=== PATIENT | female | born 1995 | race Caucasian/White ===

== ENCOUNTER 2018-06-24 13:25 | Outpatient (AMBR) | payer MEDICAID, SELFPAY ==
--- NOTE | 2018-06-24 14:44 | PT.ODS1RPT ---
PT OP Progress/Discharge Note Date of Service: June 24, 2018 Progress Note/DC Note Progress Note/Discharge Note: DC Note Patient Information Visit Reasons: back and hips Medical Diagnosis: M54.5 Treatment Dx #1: Back Pain Service Continue Service or Discharge: Discharge Discharge Date: 06/24/18 Status Subjective: Pt mention that her pain is much better. Pt has been able to sit, stand, and performing her ADLs with less limitation. Pt can lift her son with less back pain. Pt feels comfortable being release from PT with exercises to continue at home. Objective: L/S AROM: all motions are WNL Hip PROM: all motions: all motions are WNL Hip MMTs Bilateral Glute Med: 4-/5 Bilateral Glute Max: 4-/5 Assessment: Pt demonstrate functional mobility and core strength allowing her to resume normal ADLs, chores, lifting, and performing normal functional tasks. Pt will no longer benefit from physical therapy due to meeting all set goals in therapy. Pt was instructed on HEP last session and educated to continue exercises to maintain overall mobility. Pt performed all exercises safely, thank you for your referrals. Plan: D/C home with HEP and follow up with MD ARANDA Office Procedures PT Procedures PT Date of Service: 06/24/18 Therapeutic Exercise 30 minutes: Yes
== END 2018-07-22 23:59 | disposition home or self-care (01) ==
PROVIDERS: PCP Family Medicine; Referring Provider Family Medicine; Visit Provider Nurse Practitioner Family
DX: M54.5 Low back pain (principal); R26.2 Difficulty in walking, not elsewhere classified; M54.16 Radiculopathy, lumbar region
CPT/HCPCS: 97110

== ENCOUNTER 2018-11-05 10:30 | Outpatient (AMBR) | payer MEDICAID, SELFPAY ==
--- NOTE | 2018-10-25 14:07 | PT.ODAYNRPT ---
PT Outpatient Daily Note Date of Service: October 25, 2018 OP Daily Note Visit Reasons: left ankle Outpatient Physical Therapy Treatment Date: 10/25/18 Subjective: pt doing well as she had no complaints upon visit. Objective: see flow sheet. Assessment: added new exercises for balance training in which she found to be muscle fatigue causing imbalance. pt did need to use the rail at times for safety. pt had her son during treatment and was getting in front or in back of her during exercises. pt did feel more fatigue and pain during her SLS as we increased her time from 2 to 15 for each rep. Plan: continue POC per PT. Length of Time (minutes) of Treatment: 30 Minutes Office Procedures PT Procedures PT Date of Service: 10/25/18 Therapeutic Exercise 30 minutes: Yes
--- NOTE | 2018-10-29 15:07 | PT.ODAYNRPT ---
PT Outpatient Daily Note Date of Service: October 29, 2018 OP Daily Note Visit Reasons: left ankle Outpatient Physical Therapy Treatment Date: 10/29/18 Subjective: pt states her ankle was feeling stiff upon visit. pt can't explain why. Objective: see flow sheet. Assessment: advised pt it could be due to poor footwear or extra activities involving being on her feet. added new exercises in which she was able to tolerated with good mobility. pt attempted the bike and she did well. pt had more difficulty with side to side balance while on the wobble board instead of fwd/bwd. ice pack post ther ex. Plan: continue POC per PT. Length of Time (minutes) of Treatment: 30 Minutes Office Procedures PT Procedures PT Date of Service: 10/29/18 Therapeutic Exercise 30 minutes: Yes PT Procedures PT Date of Service: 10/25/18 Therapeutic Exercise 30 minutes: Yes
--- NOTE | 2018-11-03 10:57 | PT.ODAYNRPT ---
PT Outpatient Daily Note Date of Service: November 03, 2018 OP Daily Note Visit Reasons: left ankle Outpatient Physical Therapy Treatment Date: 11/03/18 Subjective: Pt has good and bad days. Today Pt's ankle feels okay Objective: Please see flow chart for list of ther ex performed Assessment: tolerate exercises with minimal pain Plan: Continue with PT Length of Time (minutes) of Treatment: 30 Minutes Office Procedures PT Procedures PT Date of Service: 10/29/18 Therapeutic Exercise 30 minutes: Yes PT Procedures PT Date of Service: 10/25/18 Therapeutic Exercise 30 minutes: Yes PT Procedures PT Date of Service: 11/03/18 Therapeutic Exercise 30 minutes: Yes
--- NOTE | 2018-11-05 10:59 | PT.ODAYNRPT ---
PT Outpatient Daily Note Date of Service: November 05, 2018 OP Daily Note Visit Reasons: left ankle Outpatient Physical Therapy Treatment Date: 11/05/18 Subjective: Pt's ankle sore from previous visit. Pt mention that she still notice tendon gliding. Objective: Please see flow chart for list of ther ex performed Assessment: difficulty with tic tock foam exercises as well as SLS with increase in stance. Pt's ankle DF AROM is improving allowing her to ambulate with good push off Plan: Continue with PT Length of Time (minutes) of Treatment: 30 Minutes Office Procedures PT Procedures PT Date of Service: 10/29/18 Therapeutic Exercise 30 minutes: Yes PT Procedures PT Date of Service: 10/25/18 Therapeutic Exercise 30 minutes: Yes PT Procedures PT Date of Service: 11/03/18 Therapeutic Exercise 30 minutes: Yes PT Procedures PT Date of Service: 11/05/18 Therapeutic Exercise 30 minutes: Yes
== END 2018-11-19 23:59 | disposition home or self-care (01) ==
PROVIDERS: PCP Family Medicine; Referring Provider Family Medicine; Visit Provider Orthopaedic Surgery
DX: S93.402D Sprain of unspecified ligament of left ankle, subsequent encounter (principal); R26.2 Difficulty in walking, not elsewhere classified; M25.572 Pain in left ankle and joints of left foot; R53.1 Weakness; X50.0XXD Overexertion from strenuous movement or load, subsequent encounter
CPT/HCPCS: 97110

== ENCOUNTER 2025-05-22 09:06 | Emergency (ER) | payer MEDICAID, SELFPAY ==
[2025-05-22 09:07] VITALS: BMI 35.5
--- NOTE | 2025-05-22 09:37 | XR_ITS ---
Examination: Foot, right, 3 views Technique: AP, oblique, lateral views foot, 3 views Date and time of exam: May 22, 2025, 0938 hours INDICATIONS: Right foot pain beginning 1 month ago. FINDINGS: No fracture or dislocation. Mild narrowing first metatarsophalangeal joint No plantar or posterior bony calcaneal spur IMPRESSION: No fracture or dislocation No cortical bone destruction No foreign body
[2025-05-22 09:38] VITALS: BP 130/86; PULSE 115; RESP 18; TEMP 36.7; O2SAT 97
--- NOTE | 2025-05-22 09:41 | EDNOTE_ITS ---
<Statement entered by Brianna Aggarwal MD - 05/22/25 17:17> As co-signing physician, I was present and available for consult prn. I concur with the plan and care as documented by the midlevel provider. Lower Extremity Injury RME/HPI General Chief Complaint: Ankle/Foot Injury Stated Complaint: foot pain Time Seen by Provider: 05/22/25 09:22 Source: patient Arrival date/time: 05/22/25 09:06 29-year-old female with no known medical history presents to the emergency room with a chief complaint of right sided foot pain x 1 month Mode of arrival: ambulatory Limitations: no limitations Related Data Previous Rx's ?Medication ?Instructions ?Recorded naproxen 500 mg tablet 500 mg PO BID PRN pain #30 t abs 02/23/23 ibuprofen 800 mg tablet 800 mg PO Q8H #30 tabs 05/22 Allergies Allergy/AdvReac Type Severity Reaction Status Date / Time No Known Allergies Allergy Unknown Uncoded 05/22/25 09:10 Review of Systems Review of Systems Systems Reviewed: All systems reviewed, normal except as documented Constitutional Constitutional: Reports system reviewed and no additional complaints, except as documented, Denies fatigue, Denies fever(s), Denies headache(s) and Denies weakness Eyes Eyes: Reports system reviewed and no additional complaints, except as documented, Denies blurry vision and Denies change in vision ENT Ears, Nose, Mouth, and Throat: Reports system reviewed and no additional complaints, except as documented, Denies otalgia, Denies headache(s), Denies nasal congestion, Denies throat swelling and Denies vertigo Cardiovascular Cardiovascular: Reports system reviewed and no additional complaints, except as documented, Denies chest pain, Denies dyspnea and Denies dyspnea on exertion Respiratory Respiratory: Reports system reviewed and no additional complaints, except as documented, Denies chest congestion, Denies cough, Denies dyspnea, Denies dyspnea on exertion and Denies wheezing Gastrointestinal Gastrointestinal: Reports system reviewed and no additional complaints, except as documented, Denies abdominal pain, Denies cramping, Denies nausea and Denies vomiting Genitourinary Genitourinary: Reports system reviewed and no additional complaints, except as documented Musculoskeletal Musculoskeletal: Reports system reviewed and no additional complaints, except as documented, Reports arthralgias, Denies back pain, Reports joint swelling and Reports limited range of motion Integumentary/Breasts Skin/Breast: Reports system reviewed and no additional complaints, except as documented and Denies wounds Neurologic Neurologic: Reports system reviewed and no additional complaints, except as documented, Denies confusion, Denies headache(s), Denies lack of coordination, Denies vertigo and Denies weakness Psychiatric Psychiatric: Reports system reviewed and no additional complaints, except as documented, Denies anxiety, Denies confusion, Denies depression, Denies paranoia, Denies suicidal ideation and Denies tactile hallucinations Endocrine Endocrine: Reports system reviewed and no additional complaints, except as documented and Denies fatigue Hematologic/Lymphatic Hematologic/Lymphatic: Reports system reviewed and no additional complaints, except as documented and Denies lymphadenopathy Allergic/Immunologic Allergic/Immunologic: Reports system reviewed and no additional complaints, except as documented, Denies throat swelling, Denies urticaria and Denies wheezing Past Medical History Past Medical History NEUROLOGIC: Negative Neurological Disorders CARDIAC: Negative Cardiac Disorders or Congestive Heart Failure RESPIRATORY: Negative Chronic Obstructive Pulmonary Disease (COPD) GASTROINTESTINAL: Positive Gastrointestinal Disorders and Obesity; Negative Hepatitis or Colorectal Cancer GENITOURINARY: Positive Genitourinary Disorders (bladder infections with previous ); Negative Renal Disease or Prostate Cancer REPRODUCTIVE: Positive Previous Pregnancies; Negative Breast Cancer or Testicular Cancer MUSCULOSKELETAL: Negative Musculoskeletal Disorders or Bone Cancer ENDOCRINE: Negative Endocrine Disorders, Diabetes Mellitus Type 1 or Diabetes Mellitus Type 2 HEMATOLOGIC: Positive Blood Disorders and Anemia (this ) OTHER HISTORY: Negative Hospitalization, Autoimmune Disease, Down Syndrome, Developmental Delay, Shingles, Falls, Blood Transfusions, Blood Transfusion Reaction, Anesthesia Reactions, Organ Transplant, Chemotherapy, Radiation Therapy, Hyperbaric Therapy, MRSA, VRSA, Vancomycin-Resistant Enterococci, Human Immunodeficiency Virus (HIV), Chicken Pox, Measles, Mumps, Rubella (T[place] Measles), Pertussis, Clostridium Difficile, Cancer, Breast Cancer, Cervical Cancer, Colorectal Cancer, Lung Cancer, Ovarian Cancer, Prostate Cancer or Testicular Cancer Family History FAMILY HISTORY: Positive Family Cardiac Disorders (grandmother) and Family Surgery (father-gastric bypass); Negative Family Psychiatric Problems, Family Respiratory Disorders, Family Gastrointestinal Problems, Family Cancer or Family Anesthesia Reaction Surgical History SURGICAL: Negative Section or Organ Transplant Social History SMOKING STATUS: Never smoker ED Exam General Limitations: Present no limitations General appearance: Present alert and in no apparent distress Head Head exam: Present atraumatic Eye Eye exam: Present normal appearance, PERRL and EOMI ENT ENT exam: Present normal exam, normal oropharynx and mucous membranes moist Neck Neck exam: Present normal inspection, full ROM and trachea midline Chest Chest inspection: Present normal inspection and symmetric chest wall rise Respiratory Respiratory exam: Present normal lung sounds bilaterally Cardiovascular Cardiovascular exam: Present regular rate, normal rhythm and normal heart sounds Abdominal Exam Abdominal exam: Present soft and normal bowel sounds Extremities Exam Extremities exam: Present normal inspection and full ROM Expanded Lower Extremity Exam Hip/Pelvis exam: Present normal inspection Upper leg exam: Present normal inspection Knee exam: Present normal inspection Lower leg exam: Present normal inspection Ankle exam: Present normal inspection Foot/toe exam: Present full ROM and tenderness; Absent swelling Back Exam Back exam: Present normal inspection and full ROM Neurological Exam Neurological exam: Present alert, oriented X3 and CN II-XII intact Psychiatric Psychiatric exam: Present normal affect and normal mood Skin Skin exam: Present warm, dry, intact and normal color Course Quality Measures none Orders Category Date Time Status XR foot comp RT min 3V Stat Exams 05/22/25 09:37 Completed Vital Signs Vital signs: Vital Signs Temperature 98.1 F 05/22/25 09:38 Pulse Rate 115 H 05/22/25 09:38 Respiratory Rate 18 05/22/25 09:38 Blood Pressure 130/86 H 05/22/25 09:38 Pulse Oximetry (%) 97 05/22/25 09:38 Oxygen Delivery Method Room Air 05/22/25 09:38 Extremity Injury, Lower MDM Narrative MDM Narrative:: 29-year-old female with no known medical history presents to the emergency room with a chief complaint of right sided foot pain x 1 month Patient is hemodynamically stable and in no apparent distress Physical examination shows tenderness to the sole of her patient's foot. There is no trauma there is no sprain. There is no erythema there is no wound there is no signs of infection. Patient has a normal steady gait X-rays of the foot were completed and were negative for any acute fracture or dislocation Patient was discharged and educated to follow-up with primary care provider in the next 24 to 48 hours and return to the emergency room for any evidence of worsening signs or symptoms Patient data External records reviewed:: [facility] previous records Clinical information provided by:: patient Social determinants that could affect healthcare access:: none Patient has the following chronic illnesses:: No chronic illness How is presenting disease/condition affected by chronic disease/condition?: no chronic disease Evaluation data The following diagnostics were reviewed and interpreted by me:: lab results and radiology exam(s) Lab and/or radiology exams considered but not ordered:: Labs radiology exams considered and ordered Interpretation Summary: X-ray foot- Medications / Prescriptions Medications or Prescriptions considered but not ordered:: No medication given Medication administrations:: No medication given Consultations Consultation(s) initiated? (list below): No Diagnosis Extremity Injury, Lower Differential Diagnosis: puncture wound of foot and other (Foot sprain/foot fracture) Most likely diagnosis given after review of the tests above:: Plantar fasciitis Admission Indicated Admission indicated?: not indicated Admission Request Was there a request for admission?: No Disposition Plan Disposition Plan: Discharge Discharge Attestation Discharge Attestation: The patient and all family members were given an opportunity to ask questions and understood the discharge instructions. Discharge instructions specifically effects, indications for sooner follow up or return to the emergency department, and the expected course of current diagnosis. Patient condition: Stable Discharge Plan Plan Patient Disposition: HOME (Self Care) Discharge Disposition comment: Stable Prescriptions/Referrals Prescriptions/Med Rec: New ibuprofen 800 mg tablet 800 mg PO Q8H Qty: 30 0RF No Action naproxen 500 mg tablet 500 mg PO BID PRN (Reason: pain) Qty: 30 0RF Referrals: Sukh Hawkins MD [Primary Care Provider, Family Practice] - In 1 week Problem List Clinical Impression: Plantar fasciitis Patient/Caregiver Discharge Instructions Education Materials: ED Plantar Fasciitis Additional Instructions: Please follow-up with your primary care provider in the next 24 to 48 hours X-rays of your foot were completed and were negative for any acute fracture or dislocation For any evidence of worsening signs or symptoms return to the emergency room immediately Print Language: East [place]orese Stand Alone Forms: Jayna Award Info., Work/School Release, Patient Portal Info Letter ALLISON/VIRI Supervising Physician ALLISON/VIRI Supervising Physician: Dr. Leach
== END 2025-05-22 10:39 | disposition home or self-care (01) ==
PROVIDERS: Emergency Provider Nurse Practitioner Family; PCP Family Medicine
DX: M72.2 Plantar fascial fibromatosis (principal)
CPT/HCPCS: 73630; 99282

== ENCOUNTER 2025-06-17 01:12 | Emergency (ER) | payer MEDICAID, SELFPAY ==
[2025-06-17 01:13] VITALS: BMI 40.3
[2025-06-17 01:58] VITALS: BP 137/94; PULSE 96; RESP 18; TEMP 36.9; O2SAT 99
--- NOTE | 2025-06-17 02:29 | PC.NURSE ---
PT REFUSING CT SCAN WANTS PAIN MEDS AND DC PAPERS
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
[2025-06-17] MEDS: HYDROcodone/APAP 5/325 TABLET 1 TAB PO (02:53)
[2025-06-17] MEDS: METOCLOPRAMIDE 5 MG TABLET 10 MG PO (02:53)
== END 2025-06-17 02:54 | disposition home or self-care (01) ==
LOC: SERX 03:16
PROVIDERS: Emergency Provider Emergency Medicine; PCP Family Medicine
DX: S09.90XA Unspecified injury of head, initial encounter (principal); V43.52XA Car driver injured in collision with other type car in traffic accident, initial encounter
CPT/HCPCS: 99281; A9270